=== PATIENT | male | born 1950 | race Caucasian/White ===

== ENCOUNTER 2016-08-23 23:05 | Observation (INO) | payer OTHER ==
[~2016-08-23] VITALS: Ht 167.6 cm; Wt 84.0 kg
[~2016-08-23 23:05] MED LIST: APIX5 PO; ATOR10TA PO; CENTCHW3 PO; DILTCD240 PO; FEXO180 PO; METO100T PO; PLAV75TA PO; ZOLP10TA3 PO
[2016-08-23 23:06] VITALS: BP 132/87; PULSE 104; RESP 20; TEMP 97.8; O2SAT 96
[2016-08-23] MEDS ORDERED: APIX5TAB PO (23:33)
[2016-08-23] MEDS ORDERED: METO25TA3 PO (23:33)
[2016-08-23] MEDS ORDERED: LIPI10TA PO (23:33)
[2016-08-23] MEDS ORDERED: SAWCAP2 PO (23:33)
[2016-08-23] MEDS ORDERED: AMBI10TA PO (23:33)
[2016-08-23 23:44] VITALS: BP 157/90
[2016-08-24] VITALS (12 sets, daily range): BP systolic 108–116; BP diastolic 72–82; PULSE 60–89; RESP 18–21; TEMP 97.3–98.6; O2SAT 95–98
[2016-08-24 00:02] LABS: BASOPHIL % 0.5 % (0.0-2.0); EOSINOPHIL # 0.2 TH/MM3 (0-0.4); EOSINOPHIL % 1.8 % (0.0-4.0); HEMO FLAGS DIFF FINAL; LYMPH % 26.6 % (9.0-44.0); LYMPHOCYTE # 2.6 TH/MM3 (1.0-4.8); MEAN CELL VOLUME 89.4 FL (80.0-100.0); MEAN CORPUSCULAR HEMOGLOBIN 31.8 PG (27.0-34.0); MEAN CORPUSCULAR HGB CONC 35.6 % (32.0-36.0); MONO % 9.3 % (0.0-8.0); NEUT % 61.8 % (16.0-70.0); PLATELET COUNT 175 TH/MM3 (150-450); RED BLOOD COUNT 5.03 MIL/MM3 (4.50-5.90); RED CELL DISTRIBUTION WIDTH 13.7 % (11.6-17.2); WHITE BLOOD COUNT 9.8 TH/MM3 (4.0-11.0)
[2016-08-24 00:07] LABS: ANION GAP 8 MEQ/L (5-15); BICARBONATE 25.4 MEQ/L (21.0-32.0); BLOOD UREA NITROGEN 25 MG/DL (7-18); CHLORIDE 108 MEQ/L (98-107); GLOMERULAR FILTRATION RATE 65 ML/MIN (>89); SODIUM (NA) 141 MEQ/L (136-145)
[2016-08-24 00:09] LABS: CREATINE KINASE 109 U/L (39-308)
[2016-08-24 00:11] LABS: APTT (PATIENT) 29.6 SEC (24.3-30.1); PROTHROMBIN TIME - PATIENT 11.5 SEC (9.8-11.6)
--- NOTE | 2016-08-24 00:28 | PD ---
HPI Chief Complaint: Cardiac Complaint Time Seen by Provider: 00:09 Travel History International Travel<30 days: No Contact w/Intl Traveler<30days: No Traveled to known affect area: No History of Present Illness HPI 66-year-old male complains of chest pain and palpitation. Patient states that the symptoms started this morning. Patient states that the chest pain is substernal chest pressure without radiation. Patient states that he has palpitation intermittent all day today. Patient denies any nausea vomiting diaphoresis. Patient denies any fever chills. Patient states that he has lightheadedness. Patient has history of [place] status post stents placement. Patient has history of atrial fibrillation and on Eliquis. Patient states that he has stress test done year ago was normal. Patient has history hypertension, dyslipidemia. Patient is a nonsmoker. Patient has family history of heart disease. Patient denies any chest pain now. PFSH Past Medical History Hx Anticoagulant Therapy: Yes (ELIQUIS) Autoimmune Disease: No Heart Rhythm Problems: Yes (Afib) Cancer: No Cardiovascular Problems: Yes (AFIB/STENTx2/MIx2) High Cholesterol: Yes Chest Pain: Yes Congestive Heart Failure: No Diabetes: No Endocrine: No Gastrointestinal Disorders: No Glaucoma: No Genitourinary: No Hepatitis: No Hiatal Hernia: No Hypertension: Yes Immune Disorder: No Musculoskeletal: No Neurologic: No Psychiatric: No Reproductive: No Respiratory: No Integumentary: No Myocardial Infarction: Yes (JANUARY 2015, jul 2015) Thyroid Disease: Yes (Nodule on right throat ) Past Surgical History Body Medical Devices: stents X2 one taken out Cardiac Surgery: Yes (STENT) Coronary Stent: Yes (2015) Eye Surgery: Yes (retina) Other Surgery: Yes Social History Alcohol Use: Yes (annualy) Tobacco Use: No Substance Use: No Allergies-Medications (Allergen,Severity, Reaction): Coded Allergies: No Known Allergies (Unverified , 08/23/16) Reported Meds & Prescriptions Reported Meds & Active Scripts Active Reported Saw Fanshawe Extract (Saw Fanshawe-Zinc) 160-15 mg Cap 450 Mg PO DAILY Metoprolol Tartrate 25 Mg Tab 25 Mg PO BID Ambien (Zolpidem Tartrate) 10 Mg Tab 10 Mg PO HS PRN Lipitor (Atorvastatin Calcium) 10 Mg Tab 10 Mg PO HS Eliquis (Apixaban) 5 Mg Tab 5 Mg PO BID Review of Systems General / Constitutional: No: Fever Eyes: No: Visual changes HENT: No: Headaches Cardiovascular: Positive: Chest Pain or Discomfort, Palpitations Respiratory: No: Shortness of Breath Gastrointestinal: No: Abdominal Pain Genitourinary: No: Dysuria Musculoskeletal: No: Pain Skin: No Rash Neurologic: No: Weakness Psychiatric: No: Depression Endocrine: No: Polydipsia Hematologic/Lymphatic: No: Easy Bruising Physical Exam Narrative GENERAL: Well-nourished, well-developed patient. SKIN: Warm and dry. HEAD: Normocephalic. EYES: No scleral icterus. No injection or drainage. NECK: Supple, trachea midline. No JVD or lymphadenopathy. CARDIOVASCULAR: Irregularly irregular rate and rhythm without murmurs, gallops, or rubs. RESPIRATORY: Breath sounds equal bilaterally. No accessory muscle use. GASTROINTESTINAL: Abdomen soft, non-tender, nondistended. MUSCULOSKELETAL: No cyanosis, or edema. BACK: Nontender without obvious deformity. No CVA tenderness. Neurologic exam normal. Data Data Last Documented VS Vital Signs Date Time Temp Pulse Resp B/P Pulse Ox O2 Delivery O2 Flow Rate FiO2 08/23/16 23:44 80 16 157/90 100 08/23/16 23:06 97.8 Room Air Orders Complete Blood Count With Diff (08/23/16 23:28) Basic Metabolic Panel (Bmp) (08/23/16 23:28) Creatine Kinase (Cpk) (08/23/16 23:28) Troponin I (08/23/16 23:28) Prothrombin Time / Inr (Pt) (08/23/16 23:28) Act Partial Throm Time (Ptt) (08/23/16 23:28) Electrocardiogram (08/23/16 ) Labs Laboratory Tests Test 08/23/16 23:15 White Blood Count 9.8 TH/MM3 Red Blood Count 5.03 MIL/MM3 Hemoglobin 16.0 GM/DL Hematocrit 45.0 % Mean Corpuscular Volume 89.4 FL Mean Corpuscular Hemoglobin 31.8 PG Mean Corpuscular Hemoglobin 35.6 % Concent Red Cell Distribution Width 13.7 % Platelet Count 175 TH/MM3 Mean Platelet Volume 8.7 FL Neutrophils (%) (Auto) 61.8 % Lymphocytes (%) (Auto) 26.6 % Monocytes (%) (Auto) 9.3 % Eosinophils (%) (Auto) 1.8 % Basophils (%) (Auto) 0.5 % Neutrophils # (Auto) 6.0 TH/MM3 Lymphocytes # (Auto) 2.6 TH/MM3 Monocytes # (Auto) 0.9 TH/MM3 Eosinophils # (Auto) 0.2 TH/MM3 Basophils # (Auto) 0.0 TH/MM3 CBC Comment DIFF FINAL Differential Comment Prothrombin Time 11.5 SEC Prothromb Time International 1.0 RATIO Ratio Activated Partial 29.6 SEC Thromboplast Time Sodium Level 141 MEQ/L Potassium Level 4.0 MEQ/L Chloride Level 108 MEQ/L Carbon Dioxide Level 25.4 MEQ/L Anion Gap 8 MEQ/L Blood Urea Nitrogen 25 MG/DL Creatinine 1.13 MG/DL Estimat Glomerular Filtration 65 ML/MIN Rate Random Glucose 159 MG/DL Calcium Level 8.3 MG/DL Total Creatine Kinase 109 U/L Troponin I LESS THAN 0.02 NG/ML MDM Medical Decision Making Medical Screen Exam Complete: Yes Emergency Medical Condition: Yes Interpretation(s) 12:27 AM. EKG show atrial fibrillation rate 88. Nonspecific ST-T wave change. CBC within normal limit. BMP within normal limit. Cardiac enzymes are normal. Differential Diagnosis Differential diagnosis including angina, [place], PE, pneumothorax. Narrative Course 66-year-old male with chest pain and atrial fibrillation with palpitation today. History of CAD status post [place], stents placement. Patient will be admitted to the chest pain center. Diagnosis Primary Impression: Chest pain Qualified Code: R07.9 - Chest pain, unspecified type Additional Impression: Atrial fibrillation with RVR Admitting Information Admitting Physician Requests: Observation Bayron Peñaloza MD Aug 24, 2016 00:28
[2016-08-24] MEDS ORDERED: ONDANSETRON HCL 4 MG/2 ML VIAL IV PRN (00:30)
[2016-08-24] MEDS ORDERED: ACETAMINOPHEN 500 MG CPLT PO PRN (00:30)
[2016-08-24] MEDS ORDERED: SODIUM CHLORIDE 0.9% FLUSH 5 ML FLUSH IVF PRN (00:30)
--- NOTE | 2016-08-24 00:36 | RADRPT ---
EXAM DATE/TIME: 08/24/2016 00:31 [facility] COMPARISON: CHEST SINGLE AP, September 10, 2015, 9:23. INDICATIONS : Chest tightness earlier but resolved. MEDICAL HISTORY : A-Fib SURGICAL HISTORY : Coronary artery stent. ENCOUNTER: Initial ACUITY: 1 day PAIN SCORE: 0/10 LOCATION: Bilateral chest FINDINGS: A single view of the chest demonstrates the lungs to be symmetrically aerated without evidence of mas s, infiltrate or effusion. The cardiomediastinal contours are unremarkable. Osseous structures are intact. CONCLUSION: No acute disease. Mitchel Hadley MD on August 24, 2016 at 0:34 Board Certified Radiologist. This report was verified electronically.
[2016-08-24 03:49] LABS: CREATINE KINASE 94 U/L (39-308)
[2016-08-24 05:54] LABS: CREATINE KINASE 76 U/L (39-308)
[2016-08-24] MEDS ORDERED: NITROGLYCERIN 0.4 MG SL 25 TABS/BTL SL PRN (08:00)
[2016-08-24] MEDS ORDERED: CARD240C6 PO (08:33)
[2016-08-24] MEDS ORDERED: APIXABAN 5 MG TABLET PO SCH (09:00)
[2016-08-24] MEDS ORDERED: METOPROLOL TARTRATE 25 MG TAB PO SCH (09:00)
[2016-08-24] MEDS ORDERED: SODIUM CHLORIDE 0.9% FLUSH 5 ML FLUSH IVF SCH (09:00)
[2016-08-24] MEDS ORDERED: ASPIRIN 325 MG TAB PO SCH (09:00)
[2016-08-24] MEDS ORDERED: DILTIAZEM-CD 240 MG CAP ER PO SCH (09:45)
[2016-08-24] MEDS ORDERED: REGADENOSON INJ 0.4 MG/5 ML SYR ONE (10:58)
--- NOTE | 2016-08-24 12:32 | RADRPT ---
EXAM DATE/TIME: 08/24/2016 10:52 [facility] COMPARISON: No previous studies available for comparison. INDICATIONS : Substernal chest pain with palpitations and lightheadedness. Atrial fibrillation. DOSE: 27.2 mCi Tc99m Myoview at stress. 8.4 mCi Tc99m Myoview at rest. 0.4 mg Lexiscan STRESS SYMPTOMS: Chest tightness, back pain and tingling. EJECTION FRACTION: 67% MEDICAL HISTORY : Myocardial infarction. Hypercholesterolemia. Hypertension. SURGICAL HISTORY : Coronary artery stent. ENCOUNTER: Initial ACUITY: 1 day PAIN SCALE: 6/10 LOCATION: Substernal chest TECHNIQUE: The patient underwent pharmacologic stress with infusion of prescribed dose. Continuous ECG tracing was monitored during stress. Gated SPECT imaging was performed after stress and conventional SPECT i maging was performed at rest. The examination was performed on a SPECT/CT scanner, both attenuation and non-corrected datasets were reviewed. FINDINGS: DISTRIBUTION: The maximum perfused segment at stress is in the anterior wall. PERFUSION STUDY: The pattern of perfusion at stress is within normal limits. GATED STUDY: There is intact wall motion and thickening without hypokinetic or dyskinetic segments. CONCLUSION: Within normal limits. No evidence of stress-induced ischemia. Normal left ventricular wall motion. RISK CATEGORY: Low Seng Bull MD on August 24, 2016 at 12:30 Board Certified Radiologist. This report was verified electronically.
--- NOTE | 2016-08-24 12:57 | HHI.DCPOC ---
Discharge Care Plan Diagnosis: (1) Atypical chest pain (2) Hx of coronary artery disease Goals to Promote Your Health * To prevent worsening of your condition and complications * To maintain your health at the optimal level Directions to Meet Your Goals Take your medications as prescribed Follow your dietary instruction Follow activity as directed Keep your appointments as scheduled Take your immunizations and boosters as scheduled If your symptoms worsen call your PCP, if no PCP go to Urgent Care Center or Emergency Room Smoking is Dangerous to Your Health. Avoid second hand smoke Call the 24-hour hour crisis hotline for domestic abuse at Rosa Vaughn Aug 24, 2016 12:57
--- NOTE | 2016-08-24 15:34 | TR ---
Date Performed: 08/24/2016 Time Performed: 11:20:01 DOCTOR: Abebe Lozano DRUG LIST: CLINICAL HISTORY: REASON FOR TEST: CHEST PAIN REASON FOR ENDING: OBSERVATION: CONCLUSION: Lexiscan stress test was performed under standard four minute protocol. Radionuclid e was injected one minute prior to ending the test. No electrocardiographic abormalities were present to suggest ischemia. Nuclear imaging and interpretation are pending. COMMENTS:
--- NOTE | 2016-08-24 15:36 | EKG ---
Date Performed: 08/24/2016 Time Performed: 02:27:59 PTAGE: 66 years EKG: ATRIAL FIBRILLATION WITH ABERRANT CONDUCTION OR VENTRICULAR PREMATURE COMPLEXES ABNORMAL [facility] ECG PREVIOUS TRACING : 08/23/2016 23.20 Since previous tracing, no significant change noted DOCTOR: Abebe Lozano Interpretating Date/Time 08/24/2016 15:36:26
--- NOTE | 2016-08-24 15:36 | EKG ---
Date Performed: 08/24/2016 Time Performed: 05:13:34 PTAGE: 66 years EKG: ATRIAL FIBRILLATION ABNORMAL RHYTHM ECG PREVIOUS TRACING : 08/23/2016 23.20 Compared to previous tracing, PVCs no longer present. DOCTOR: Abebe Lozano Interpretating Date/Time 08/24/2016 15:35:41
--- NOTE | 2016-08-24 15:39 | EKG ---
Date Performed: 08/23/2016 Time Performed: 23:20:39 PTAGE: 66 years EKG: ATRIAL FIBRILLATION ABNORMAL RHYTHM ECG PREVIOUS TRACING : 09/10/2015 09.05 Since previous tracing, no significant change noted DOCTOR: Abebe Lozano Interpretating Date/Time 08/24/2016 15:38:22
--- NOTE | 2016-08-24 17:41 | HHI.HP ---
HPI Primary Care Physician José Miguel Lopes, PhD, MD Chief Complaint Chest tightness History of Present Illness 66-year-old male with known CAD, 3 cardiac stents, hyperlipidemia, and hypertension and onset of chest tightness. Onset 3 AM. Location left anterior chest. No radiation. Duration 1-2 minutes. No associated symptoms. Discomfort has waxed and waned in severity. Discomfort seemed exertional to patient. Deep breaths, position, or movements does not make discomfort better or worse. Also complains of fatigue over the past 4 days. And lightheadedness 2 days when bending over. Review of Systems General: No fatigue,weakness, fever, chills, recent illness, or change in appetite HEENT: No LARES, no vision changes, no nasal congestion or drainage, no dysphasia CV: As stated above. Denies any true "pain. " No current CP or pressure. No palpitations, intermittent leg pain. RESP: No SOB, cough, wheeze, or recent URI. GI: No nausea or vomiting, bowel changes, diarrhea, constipation, pain, distention, melena, blood in the stool. No change in appetite, no unintentional weight gain or weight loss : No dysuria, urgency, frequency, hematuria EXT: No lower leg edema, no paraesthesias MS: No discomfort or change in ROM NEURO: No change in memory, dizziness, difficulty with balance, LOC, motor/ sensory deficits PSYCH: No anxiety or depression SKIN: No rashes, no concerning lesions Past Family Social History Allergies: Coded Allergies: No Known Allergies (Unverified , 08/23/16) Past Medical History CAD, 3 cardiac stents, A. fib diagnosed in 2016, hyperlipidemia, [place], hypertension Past Surgical History Retina surgery Reported Medications Reported Meds & Active Scripts Active Reported Cardizem CD 24 HR (Diltiazem CD 24 HR) 240 Mg Caper 240 Mg PO DAILY Saw Volin Extract (Saw Volin-Zinc) 160-15 mg Cap 450 Mg PO DAILY Metoprolol Tartrate 25 Mg Tab 25 Mg PO BID Ambien (Zolpidem Tartrate) 10 Mg Tab 10 Mg PO HS PRN Lipitor (Atorvastatin Calcium) 10 Mg Tab 10 Mg PO HS Eliquis (Apixaban) 5 Mg Tab 5 Mg PO BID Social History Remote smoker quit in his early 20s. Denies any alcohol or illegal drug use. Has known hypertension and hyperlipidemia. No known diabetes. 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 He is . Past cardiac testing Cardiac catheterization 01/29/15 it PTCA and stent proximal circumflex and mid LAD 08/16/15 cardiac catheterization with PTCA and stent in the proximal LAD. Had a stress test one year ago. Follows with Dr. Nirav Garcia. Physical Exam Vital Signs Vital Signs Date Time Temp Pulse Resp B/P Pulse Ox O2 Delivery O2 Flow Rate FiO2 08/24/16 13:06 78 08/24/16 12:26 98.6 89 20 114/72 96 08/24/16 09:59 60 113/82 08/24/16 08:00 77 08/24/16 07:27 95 21 08/24/16 07:19 97.3 78 21 116/77 96 08/24/16 07:00 77 08/24/16 05:53 98.0 66 18 114/80 98 08/24/16 05:00 81 08/24/16 02:45 80 16 114/76 100 08/24/16 01:00 80 20 108/79 96 Room Air 08/24/16 00:58 96 21 08/23/16 23:16 16 98 08/23/16 23:06 97.8 104 20 132/87 96 Room Air Physical Exam GENERAL: Alert WN, WD, NAD, pleasant, male HEAD: NC, AT EYES: Sclera clear, conjunctiva without injection, pupils equal and round ENT: Mucous membranes pink and moist NECK: Supple, no masses, trachea midline CV: RRR, without murmur, rub, gallop, no JVD, S1-S2 no S3-S4. No carotid bruits RESP: Clear lungs throughout bilateral, no crackles, wheeze, rhonchi, symmetrical chest rise, nonlabored, able to speak in full sentences ABD: Soft, NT, ND, no masses, positive bowel tones BACK: No CVAT, no scoliosis EXT: Pulses +24, no dependent edema MS: Normal tone 4 extremities, nontender, no obvious deformities, full range of motion NEURO: CN II through CN XII grossly intact, motor strength 5/5, gait WNL PSYCH: A+O 3, pleasant affect, appropriate speech, appropriate mood and affect , insight and judgment SKIN: Normal turgor, normal texture, no lesions, no rashes, brisk cap refill, even hair distribution Laboratory Laboratory Tests Test 08/23/16 08/24/16 08/24/16 23:15 02:30 05:10 White Blood Count 9.8 Red Blood Count 5.03 Hemoglobin 16.0 Hematocrit 45.0 Mean Corpuscular Volume 89.4 Mean Corpuscular Hemoglobin 31.8 Mean Corpuscular Hemoglobin 35.6 Concent Red Cell Distribution Width 13.7 Platelet Count 175 Mean Platelet Volume 8.7 Neutrophils (%) (Auto) 61.8 Lymphocytes (%) (Auto) 26.6 Monocytes (%) (Auto) 9.3 Eosinophils (%) (Auto) 1.8 Basophils (%) (Auto) 0.5 Neutrophils # (Auto) 6.0 Lymphocytes # (Auto) 2.6 Monocytes # (Auto) 0.9 Eosinophils # (Auto) 0.2 Basophils # (Auto) 0.0 CBC Comment DIFF FINAL Differential Comment Prothrombin Time 11.5 Prothromb Time International 1.0 Ratio Activated Partial 29.6 Thromboplast Time Sodium Level 141 Potassium Level 4.0 Chloride Level 108 Carbon Dioxide Level 25.4 Anion Gap 8 Blood Urea Nitrogen 25 Creatinine 1.13 Estimat Glomerular Filtration 65 Rate Random Glucose 159 Calcium Level 8.3 Total Creatine Kinase 109 94 76 Troponin I LESS THAN 0.02 LESS THAN 0.02 LESS THAN 0.02 Result Diagram: 08/23/16231408/23/162314 Imaging Last Impressions Chest X-Ray 08/24/16 0020 Signed Impressions: Service Date/Time: Wednesday, August 24, 2016 00:31 - CONCLUSION: No acute disease. Mitchel Hadley MD Myocardial Perfusion Scan Nuc Med 08/24/16 0000 Signed Impressions: Service Date/Time: Wednesday, August 24, 2016 10:52 - CONCLUSION: Within normal limits. No evidence of stress-induced ischemia. Normal left ventricular wall motion. RISK CATEGORY: Low Seng Bull MD Course EKGs 3 EKGs show A. fib with nonspecific ST changes Assessment and Plan Assessment and Plan #1 chest pain-patient and the chest pain center. Was ruled out with 3 sets of EKGs, cardiac enzymes, and monitored throughout evening. Completed a nuclear stress test. Scan was unremarkable with no signs of ischemia. He will be discharged this afternoon. Encouraged to follow-up with dental patient coordinator tomorrow to discuss cardiac medications. #2 A. fibcontinue our request and Glenn #3 hyperlipidemiacontinue atorvastatin Rosa Vaughn Aug 24, 2016 17:41
[2016-11-12] MEDS ORDERED: HYDR-3288 PO (08:17)
[2016-11-12] MEDS ORDERED: CEPH-460 PO (08:17)
== END 2016-08-24 14:55 | disposition home or self-care (01) ==
LOC: NEPE 23:05 → NEDA 08-24 00:33 → NEPHCDU 08-24 02:44
DX: R07.89 Other chest pain (principal); I25.10 Atherosclerotic heart disease of native coronary artery without angina pectoris; I48.91 Unspecified atrial fibrillation; I10 Essential (primary) hypertension; I25.2 Old myocardial infarction; E78.5 Hyperlipidemia, unspecified; E78.00 Pure hypercholesterolemia, unspecified; Z95.5 Presence of coronary angioplasty implant and graft; Z87.891 Personal history of nicotine dependence; Z82.49 Family history of ischemic heart disease and other diseases of the circulatory system
CPT/HCPCS: 71010; 78452; 80048; 82550; 84484; 85025; 85610; 85730; 93005; 93017; 99285; A9502; G0378; J2785

== ENCOUNTER → 2016-10-06 | Day surgery (SDC) | payer OTHER ==
[~2016-10-06] MED LIST changes: +AMBI10TA PO; -APIX5 PO; +APIX5TAB PO; -ATOR10TA PO; +ATROPINE SULFATE 1% OPHT SOLN 2 ML BTL ONE; +CARD240C6 PO; -CENTCHW3 PO; +CEPH-460 PO; +DEXAMETHASONE SOD PHOS 4 MG/ML VIAL ONE; -DILTCD240 PO; +EPINEPHrine HCL (1:1000) 1 MG/ML VIAL ONE; -FEXO180 PO; +FLURBIPROFEN 0.03% OPHT SOLN 2.5 ML BTL ONE; +HYALURONIDASE/LIDOCAINE/BUPIVACAINE 11 ML SYR TL ONE; +HYDR-3288 PO; +LACTATED RINGER'S 1000 ML INJ 1,000 ML ONE; +LIPI10TA PO; -METO100T PO; +METO25TA3 PO; +NEOMYCIN/POLYMYXIN/DEXAMETHASONE OPTH OINT 3.5 GM TUBE ONE; +PHENYLEPHRINE HCL 2.5 % OPTH SOLN 15 ML BTL ONE; -PLAV75TA PO; +PROPOFOL 200 MG/20 ML AMP IV ONE; +SAWCAP2 PO; +SODIUM CHLORIDE 0.9% INJ 10 ML ONE; +TETRACAINE 0.5% OPTH SOLN 15 ML BTL ONE; +TROPICAMIDE 1% OPHT SOLN 15 ML BTL ONE; -ZOLP10TA3 PO; +ceFAZolin INJ 1,000 MG VIAL ONE
--- NOTE | 2016-10-28 09:12 | TN ---
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 POSTOPERATIVE DIAGNOSIS Previous retinal detachment and epiretinal membrane right eye. PROCEDURE Pars plana vitrectomy with membrane pealing and endolaser silicone oil removal and air-fluid exchange right eye. ANESTHESIA MAC SURGEON Michael Arana MD COMPLICATIONS None PROCEDURE IN DETAIL After informed consent was obtained, the patient brought to the operating room, placed, under brief anesthesia of propofol, prepped and draped in the usual sterile fashion. A wire eyelid speculum was placed in the patient's right eye. 23 gauge vitrectomy cannulas were then placed, one lower temporal, supratemporal and supranasal quadrants 3 mm posterior to the corneal scleral limbus. Infusion cannula was placed lower temporally. The patient had a previous vitrectomy with some of the residual vitreous, at the vitreous space was excised using the vitreous cutter. Posteriorly either the internal limiting membrane or an epiretinal membrane was stained with ICG dye over the surface of the macula. This was then carefully peeled from around the macula hole. Careful indirect ophthalmoscopy with scleral depression was then performed. No peripheral breaks were noted. A complete air-fluid was then performed. The silicone oil gas then used to fill the vitreous cavity. The patient had an epiretinal membrane which was carefully pealed off the surface of the macula with intraocular forceps. Also, the same was done for the internal limiting membrane. Some endolaser was placed at the edge of the retinectomy and an air-fluid exchange was performed. Also, the three vitrectomy cannulas were removed. Subconjunctival injections of Dexamethasone and Ancef were placed. An Atropine drop, Maxitrol ointment and a patch and shield were then applied. This patient tolerated the procedure well. There were no complications. [facility] Michael Arana MD TAB/DJL /10:05 AM /9:10 AM
== END | disposition home or self-care (01) ==
LOC: ESDC 11:15
PROVIDERS: ATTEND Ophthalmology Retina Specialist
DX: H33.001 Unspecified retinal detachment with retinal break, right eye (principal)
CPT/HCPCS: 00145; 67108; J0171; J0690; J1100; J7120

== ENCOUNTER → 2016-11-12 | Day surgery (SDC) | payer OTHER ==
[~2016-11-12] VITALS: Ht 170.2 cm; Wt 82.0 kg
[~2016-11-12] MED LIST changes: +ACETAMINOPHEN 1000 MG/100 ML VIAL IV ONE; -ATROPINE SULFATE 1% OPHT SOLN 2 ML BTL ONE; +BUPIVACAINE HCL PF 0.5% 30 ML VIAL ONE; -EPINEPHrine HCL (1:1000) 1 MG/ML VIAL ONE; +FAMOTIDINE 20 MG/2 ML VIAL ONE; -FLURBIPROFEN 0.03% OPHT SOLN 2.5 ML BTL ONE; -HYALURONIDASE/LIDOCAINE/BUPIVACAINE 11 ML SYR TL ONE; +LIDOCAINE HCL 2% 50 ML VIAL ONE; +MIDAZOLAM HCL 2 MG/2 ML VIAL ONE; +NEOMYCIN/POLYMYXIN 1 ML G.U. IRRIGANT IR ONE; -NEOMYCIN/POLYMYXIN/DEXAMETHASONE OPTH OINT 3.5 GM TUBE ONE; -PHENYLEPHRINE HCL 2.5 % OPTH SOLN 15 ML BTL ONE; -SODIUM CHLORIDE 0.9% INJ 10 ML ONE; -TETRACAINE 0.5% OPTH SOLN 15 ML BTL ONE; -TROPICAMIDE 1% OPHT SOLN 15 ML BTL ONE; +ceFAZolin 2 GM PREMIX 50 ML ONE; -ceFAZolin INJ 1,000 MG VIAL ONE
[2016-11-12 06:35] VITALS: BP 139/85; PULSE 59; RESP 14; TEMP 97.7; O2SAT 99
[2016-11-12 06:55] LABS: HEMATOCRIT 44.9 % (39.0-51.0); MEAN CELL VOLUME 89.8 FL (80.0-100.0); MEAN CORPUSCULAR HEMOGLOBIN 30.2 PG (27.0-34.0); MEAN CORPUSCULAR HGB CONC 33.6 % (32.0-36.0); PLATELET COUNT 174 TH/MM3 (150-450); RED CELL DISTRIBUTION WIDTH 12.4 % (11.6-17.2); REVIEW FLAG FINAL; WHITE BLOOD COUNT 7.8 TH/MM3 (4.0-11.0)
[2016-11-12 09:35] VITALS: BP 128/89; PULSE 68; RESP 16; TEMP 97.7; O2SAT 99
--- NOTE | 2016-11-12 10:53 | MP ---
cc: DON VINSON III, M.D. DATE OF OPERATION 11/12/2016 PREOPERATIVE DIAGNOSIS Left carpal tunnel syndrome PROCEDURE Left open carpal tunnel release. SURGEON Don Vinson III, MD PROCEDURE The patient was brought to the operating room, placed supine on the operating table. After the correct site and side of the surgery were verified by the members of each team in the room multiple times including the patient and myself and, after adequate preoperative markings and preoperative written consent were verified by everyone and, after adequate preoperative antibiotics were adminisered, the left upper extremity was prepped and draped in the traditional sterile surgical fashion. A 50/50 mixture of 2% plain lidocaine and 0.5% plain Marcaine was infiltrated in the skin and subcutaneous tissue, into the skin at the base of the palm, into the carpal tunnel. The limb was exsanguinated with a gentle Gino wrap and a highly placed, well-padded axillary tourniquet was inflated to 200 mmHg for a total of 11 minutes. A longitudinally oriented incision within the skin crease at the base of the palm was made and carried down through the skin and subcutaneous tissue, blunt dissection was performed. Subcutaneous vessels were easily controlled with bipolar electrocautery. The palmar fascia was retracted in opposite directions. The transverse carpal ligament was identified and incised in its midline from its proximal-most to its distal-most extents including freeing the carpal tunnel contents under loupe enhanced visualization. The median nerve was found to be intact as were the medial carpal tunnel contents. There was a moderately hypertrophic tenosynovium but no other areas of mass effect or any anatomic abnormalities were identified. Thorough irrigation with saline irrigation was performed. The skin edges were reapproximated using interrupted 4-0 nylon sutures. The hand and arm were thoroughly cleansed and dried, Betadine and Adaptic dressings were applied on top of the wound, followed by a bulky soft dressing. Circumferential Sof-Rol was then placed. The axillary tourniquet was released and the hand and all the fingers became immediately soft, pink and warm and had brisk capillary refill of less than 3 seconds. There was no evidence of any hematoma formation or any bleeding. Hemostasis was present. Circumferential Gino wrap was placed. The patient was awakened from anesthesia and transported to the Post-Anesthesia Care Unit awake and in stable condition at the end of the case. The sponge, needle and instrument counts were correct at the end of the case as reported by the nurses in the room. MD STEPHANIE Hilliard III/JAYSHREE /8:51 AM /10:38 AM
== END | disposition home or self-care (01) ==
LOC: PHSDC 06:15
PROVIDERS: ATTEND Orthopaedic Surgery Hand Surgery
DX: G56.02 Carpal tunnel syndrome, left upper limb (principal); I10 Essential (primary) hypertension; I25.10 Atherosclerotic heart disease of native coronary artery without angina pectoris; G62.9 Polyneuropathy, unspecified; I25.2 Old myocardial infarction; Z95.5 Presence of coronary angioplasty implant and graft
CPT/HCPCS: 36415; 64721; 85027; J0131; J0690; J1100; J2250; J7120